=== PATIENT | female | born 1960 | race Caucasian/White ===

== ENCOUNTER 2018-08-25 23:37 | Observation (INO) ==
[2018-08-26 01:00] LABS: Basophils % 0.2 %; Eosinophils % 0.1 %; Hematocrit 44.4 % (35.3-44.9); Hemoglobin 14.7 g/dL (11.5-15.4); Immature Granulocytes % 0.5 % (0-4); Lymphocytes # 1.8 K/mcL (0.6-4.6); Lymphocytes % 13.8 %; Mean Corpuscular HGB Conc 33.1 g/dL (31.6-35.5); Mean Corpuscular Hemoglobin 29.6 pg (28.0-33.3); Mean Corpuscular Volume 89.5 fL (83.0-100.0); Mean Platelet Volume 10.6 fL (9.4-12.4); Monocytes # 0.4 K/mcL (0.0-1.3); Monocytes % 2.9 %; Neutrophils # 10.6 K/mcL (1.6-8.9); Platelet Count 279 K/mcL (140-400); Red Blood Count 4.96 M/mcL (3.82-4.97); Red Cell Distribution Width 13.2 % (11.5-14.5); Segmented Neutrophils % 82.5 %; White Blood Count 12.9 K/mcL (4.3-11.1)
[2018-08-26] MEDS ORDERED: Pantoprazole 40 MG VIAL IVP ONE (01:04)
[2018-08-26] MEDS ORDERED: *HR* FentaNYL (PF) 100 MCG/2 ML VIAL IVP ONE ×2 (01:04→02:23)
[2018-08-26] MEDS ORDERED: Ondansetron 4 MG/2 ML VIAL IVP ONE (01:04)
--- NOTE | 2018-08-26 01:09 | Emergency Department Note ---
Disposition Clinical Impression: Acute cholecystitis Disposition: Admitted As Inpatient Condition: Fair Time of Disposition: 02:37 General Adult HPI - General Chief complaint: ED Chest Pain Stated complaint: cp/abdominal/back Time Seen by Provider: 08/26/18 00:53 Source: patient, family Limitations: no limitations Nursing Notes Reviewed: Yes Vital Signs Reviewed: Yes - History of Present Illness HPI Narrative: 58 year old female with history of stomach ulcer presents with acute abdominal pain. Patient stated it was constant pain in upper abdomen and chest since 8:00 this evening. Associated with nausea and vomiting. Patient also reported diarrhea. History of hysterectomy. Onset (ago): hour(s) (5) Location: abdomen Pain Scale: 10 - Related Data Home Medications Medication Instructions Recorded Confirmed Metoprolol [Lopressor] 100 mg PO DAILY 08/26/18 08/26/18 Sertraline 08/26/18 Wellbutrin 08/26/18 08/26/18 amLODIPine [Norvasc] 5 mg PO DAILY 08/26/18 08/26/18 Allergies Allergy/AdvReac Type Severity Reaction Status Date / Time morphine Allergy Rash Verified 08/25/18 23:48 Constitutional: Denies: fever, chills Eyes: Denies: eye pain ENT ED: Denies: ear pain Cardiovascular: Reports: chest pain Respiratory: Denies: cough Gastrointestinal: Reports: abdominal pain, nausea, vomiting, diarrhea Genitourinary: Denies: urgency Musculoskeletal: Denies: back pain Integumentary: Denies: rash Neurological: Denies: headache Psychiatric: Denies: anxiety Endocrine: Denies: fatigue Hematological/Lymphatic: Denies: easy bleeding Allergic/Immunologic: Denies: facial swelling Past Medical History - Past Medical History Medical history: Reports: GERD, hypertension Surgical history: Reports: hysterectomy Psychiatric history: Reports: no psych history - Social History Smoking Status: Never smoker Smokeless Tobacco Status: No Alcohol use: Reports: occasionally Drug use: Reports: none Physical Exam - General Limitations: no limitations General appearance: alert, in no apparent distress - Head Head exam: atraumatic - Eye Eye exam: Present: normal appearance - ENT ENT exam: normal exam - Neck Neck exam: Present: normal inspection - Chest Chest inspection: Present: normal inspection - Respiratory Respiratory exam: Present: normal lung sounds bilaterally. Absent: respiratory distress, wheezes - Cardiovascular Cardiovascular exam: Present: regular rate - Abdominal Exam Abdominal exam: Present: soft, tenderness Abdominal tenderness: Present: RUQ, epigastrium - Extremities Exam Extremities exam: Present: normal inspection, full ROM. Absent: tenderness - Back Exam Back exam: Present: normal inspection, full ROM. Absent: tenderness - Neurological Exam Neurological exam: Present: alert, oriented X3 - Psychiatric Psychiatric exam: Present: normal affect - Skin Skin exam: Present: warm, intact Course Vital Signs Temperature 97.1 F L 08/25/18 23:48 Pulse Rate 88 08/25/18 23:48 Respiratory Rate 18 08/25/18 23:48 Blood Pressure 184/81 08/25/18 23:48 O2 Sat by Pulse Oximetry 100 08/25/18 23:48 Temperature 97.1 F L 08/25/18 23:48 Pulse Rate 46 08/26/18 02:00 Respiratory Rate 14 08/26/18 02:57 Blood Pressure 165/70 08/26/18 02:57 O2 Sat by Pulse Oximetry 100 08/25/18 23:48 Oxygen Delivery Oxygen Delivery Room Air Medical Decision Making - [facility] Narrative Medical decision making narrative: 58-year-old female with history of stomach ulcer presents with acute abdominal pain. Associate with nausea vomiting. Physical exam epigastric and right upper abdomen tender to palpation. Labs : white cell elevated, normal lipase, normal ALT AST, TB and DB. Abdomen CT possible acute cholecystitis. Spoke with general surgeon Dr. Collazo. He will admit patient to his service. Nothing by mouth. IV antibiotics started in ER. Dr. Renee has seen the patient and agrees the above plan. - Lab Data Lab results reviewed: Yes I reviewed the patient's lab results. Result diagrams: 08/26/18 00:44 08/26/18 00:44 Lab Results 08/26/18 08/26/18 Range/Units 00:44 00:44 WBC 12.9 H (4.3-11.1) K/mcL RBC 4.96 (3.82-4.97) M/mcL Hgb 14.7 (11.5-15.4) g/dL Hct 44.4 (35.3-44.9) % MCV 89.5 (83.0-100.0) fL MCH 29.6 (28.0-33.3) pg MCHC 33.1 (31.6-35.5) g/dL RDW 13.2 (11.5-14.5) % Plt Count 279 (140-400) K/mcL MPV 10.6 (9.4-12.4) fL Immature Gran % 0.5 (0-4) % Seg Neutrophils % 82.5 % Lymphocytes % 13.8 % Monocytes % 2.9 % Eosinophils % 0.1 % Basophils % 0.2 % Neutrophils # 10.6 H (1.6-8.9) K/mcL Lymphocytes # 1.8 (0.6-4.6) K/mcL Monocytes # 0.4 (0.0-1.3) K/mcL Eosinophils # 0.0 (0.0-0.6) K/mcL Basophils # 0.0 (0.0-0.2) K/mcL Sodium 137 (136-145) mEq/L Potassium 3.3 L (3.5-5.1) mEq/L Chloride 104 (98-107) mEq/L Carbon Dioxide 22 L (23-29) mEq/L BUN 15 (6-20) mg/dL Creatinine 0.82 (0.60-1.20) mg/dL Est GFR ( Amer) > 60 (> 60) Est GFR (Non-Af Amer) > 60 (> 60) BUN/Creatinine Ratio 18 (6-26) Glucose 163 H (70-105) mg/dL Calculated Osmolality 288 (280-300) Calcium 9.4 (8.6-10.3) mg/dL Total Bilirubin 0.4 (0.3-1.0) mg/dL Direct Bilirubin 0.1 (0.0-0.2) mg/dL Indirect Bilirubin 0.3 (0.0-1.2) mg/dL AST 24 (13-39) Units/L ALT 29 (7-52) Units/L Alkaline Phosphatase 113 H (34-104) Units/L Troponin I < 0.03 (< 0.04) ng/mL Serum Total Protein 7.2 (6.4-8.9) g/dL Albumin 4.5 (3.5-5.7) g/dL Globulin 2.7 (2.4-3.5) g/dL Albumin/Globulin Ratio 1.7 (1.1-2.2) Lipase 16 (11-82) Units/L - Radiology Data Radiology results reviewed: Yes I reviewed the patient's radiology results. TECHNIQUE: CT of the abdomen and pelvis was performed without the administration of intravenous contrast. Multiplanar reformatted images are provided for review. Dose modulation, iterative reconstruction, and/or weight based adjustment of the mA/kV was utilized to reduce the radiation dose to as low as reasonably achievable. COMPARISON: None. HISTORY: ORDERING SYSTEM PROVIDED HISTORY: upper abdominal pain FINDINGS: Lower Chest: Small areas of atelectasis at the lung bases. Heart is normal in size. No pericardial effusion. Organs: The gallbladder is mildly distended with diameter of 3.6 cm. Minimal inflammation of the pericholecystic fat. Findings are suspicious for possible acute cholecystitis. Consider HIDA scan. Mildly prominent lymph nodes in diane hepatis has short axis diameter of 7 mm, likely reactive. Liver, pancreas, spleen, bilateral adrenal glands are unremarkable. Bilateral kidneys and ureters are unremarkable. GI/Bowel: Stomach, small and large bowel loops are grossly unremarkable. The appendix is normal. Gastroesophageal reflux in distal esophagus. Pelvis: Urinary bladder is unremarkable. No lymphadenopathy. No soft tissue masses or abnormal fluid collections. Peritoneum/Retroperitoneum: No free intraperitoneal fluid or air. No abdominal aortic aneurysm. No retroperitoneal lymphadenopathy. Bones/Soft Tissues: No lytic or blastic lesions in all visualized osseous structures. CT/CT abd pelvis wo no iv no oral IMPRESSION: Mild distension of the gallbladder and minimal inflammation of the pericholecystic fat are suggestive of possible acute cholecystitis. Consider HIDA scan. Gastroesophageal reflux in the distal esophagus. D/ / Jackelyn Giles MD / Jackelyn Giles MD Interpreting Provider: Jackelyn Giles MD
[2018-08-26 01:15] LABS: BUN/Creatinine Ratio 18 (6-26); Blood Urea Nitrogen 15 mg/dL (6-20); Calcium 9.4 mg/dL (8.6-10.3); Carbon Dioxide 22 mEq/L (23-29); Chloride 104 mEq/L (98-107); Glucose 163 mg/dL (70-105); Lipase 16 Units/L (11-82); Osmolality,Calculated 288 (280-300); Potassium 3.3 mEq/L (3.5-5.1); Sodium 137 mEq/L (136-145); eGFR For African Americans > 60 (> 60); eGFR For Non-African Americans > 60 (> 60)
[2018-08-26 01:16] LABS: Troponin I < 0.03 ng/mL (< 0.04)
[2018-08-26 01:27] LABS: Alanine Aminotransferase 29 Units/L (7-52); Albumin 4.5 g/dL (3.5-5.7); Albumin/Globulin Ratio 1.7 (1.1-2.2); Alkaline Phosphatase 113 Units/L (34-104); Aspartate Amino Transferase 24 Units/L (13-39); Bilirubin,Direct 0.1 mg/dL (0.0-0.2); Bilirubin,Indirect 0.3 mg/dL (0.0-1.2); Bilirubin,Total 0.4 mg/dL (0.3-1.0); Total Protein 7.2 g/dL (6.4-8.9)
[2018-08-26 01:28] LABS: Globulin 2.7 g/dL (2.4-3.5)
[2018-08-26] MEDS ORDERED: MetroNIDAZOLE 500 MG/100 ML 500 MG/100 ML BAG IVPB ONE (02:24)
[2018-08-26] MEDS ORDERED: *HR* FentaNYL (PF) 100 MCG/2 ML VIAL IVP PRN (02:35)
[2018-08-26] MEDS ORDERED: Ondansetron 4 MG/2 ML VIAL IVP PRN ×2 (02:37→06:03)
--- NOTE | 2018-08-26 02:57 | Emergency Department Note ---
Disposition Clinical Impression: Acute cholecystitis Disposition: Admitted As Inpatient Condition: Fair Time of Disposition: 03:02 General Adult HPI - General Chief complaint: ED Chest Pain Stated complaint: cp/abdominal/back Time Seen by Provider: 08/26/18 00:53 Source: patient, family Limitations: no limitations Nursing Notes Reviewed: Yes Vital Signs Reviewed: Yes - History of Present Illness Location: abdomen Pain Scale: 10 - Related Data Home Medications Medication Instructions Recorded Confirmed Metoprolol [Lopressor] 100 mg PO DAILY 08/26/18 08/26/18 Sertraline 08/26/18 Wellbutrin 08/26/18 08/26/18 amLODIPine [Norvasc] 5 mg PO DAILY 08/26/18 08/26/18 Allergies Allergy/AdvReac Type Severity Reaction Status Date / Time morphine Allergy Rash Verified 08/25/18 23:48 Constitutional: Denies: fever, chills Eyes: Denies: eye pain ENT ED: Denies: ear pain Cardiovascular: Reports: chest pain Respiratory: Denies: cough Gastrointestinal: Reports: abdominal pain, nausea, vomiting, diarrhea Genitourinary: Denies: urgency Musculoskeletal: Denies: back pain Integumentary: Denies: rash Neurological: Denies: headache Psychiatric: Denies: anxiety Endocrine: Denies: fatigue Hematological/Lymphatic: Denies: easy bleeding Allergic/Immunologic: Denies: facial swelling Past Medical History - Past Medical History Medical history: Reports: GERD, hypertension Surgical history: Reports: hysterectomy Psychiatric history: Reports: no psych history - Social History Smoking Status: Never smoker Smokeless Tobacco Status: No Alcohol use: Reports: occasionally Drug use: Reports: none Physical Exam - General Limitations: no limitations General appearance: alert, in no apparent distress Course Vital Signs Temperature 97.1 F L 08/25/18 23:48 Pulse Rate 88 08/25/18 23:48 Respiratory Rate 18 08/25/18 23:48 Blood Pressure 184/81 08/25/18 23:48 O2 Sat by Pulse Oximetry 100 08/25/18 23:48 Temperature 97.1 F L 08/25/18 23:48 Pulse Rate 46 08/26/18 02:00 Respiratory Rate 15 08/26/18 02:00 Blood Pressure 176/64 08/26/18 02:00 O2 Sat by Pulse Oximetry 100 08/25/18 23:48 Oxygen Delivery Oxygen Delivery Room Air Medical Decision Making - Medical Records Medical records reviewed: Yes I reviewed the patient's medical records. - Lab Data Lab results reviewed: Yes I reviewed the patient's lab results. Result diagrams: 08/26/18 00:44 08/26/18 00:44 Lab Results 08/26/18 08/26/18 Range/Units 00:44 00:44 WBC 12.9 H (4.3-11.1) K/mcL RBC 4.96 (3.82-4.97) M/mcL Hgb 14.7 (11.5-15.4) g/dL Hct 44.4 (35.3-44.9) % MCV 89.5 (83.0-100.0) fL MCH 29.6 (28.0-33.3) pg MCHC 33.1 (31.6-35.5) g/dL RDW 13.2 (11.5-14.5) % Plt Count 279 (140-400) K/mcL MPV 10.6 (9.4-12.4) fL Immature Gran % 0.5 (0-4) % Seg Neutrophils % 82.5 % Lymphocytes % 13.8 % Monocytes % 2.9 % Eosinophils % 0.1 % Basophils % 0.2 % Neutrophils # 10.6 H (1.6-8.9) K/mcL Lymphocytes # 1.8 (0.6-4.6) K/mcL Monocytes # 0.4 (0.0-1.3) K/mcL Eosinophils # 0.0 (0.0-0.6) K/mcL Basophils # 0.0 (0.0-0.2) K/mcL Sodium 137 (136-145) mEq/L Potassium 3.3 L (3.5-5.1) mEq/L Chloride 104 (98-107) mEq/L Carbon Dioxide 22 L (23-29) mEq/L BUN 15 (6-20) mg/dL Creatinine 0.82 (0.60-1.20) mg/dL Est GFR ( Amer) > 60 (> 60) Est GFR (Non-Af Amer) > 60 (> 60) BUN/Creatinine Ratio 18 (6-26) Glucose 163 H (70-105) mg/dL Calculated Osmolality 288 (280-300) Calcium 9.4 (8.6-10.3) mg/dL Total Bilirubin 0.4 (0.3-1.0) mg/dL Direct Bilirubin 0.1 (0.0-0.2) mg/dL Indirect Bilirubin 0.3 (0.0-1.2) mg/dL AST 24 (13-39) Units/L ALT 29 (7-52) Units/L Alkaline Phosphatase 113 H (34-104) Units/L Troponin I < 0.03 (< 0.04) ng/mL Serum Total Protein 7.2 (6.4-8.9) g/dL Albumin 4.5 (3.5-5.7) g/dL Globulin 2.7 (2.4-3.5) g/dL Albumin/Globulin Ratio 1.7 (1.1-2.2) Lipase 16 (11-82) Units/L - Radiology Data Radiology results reviewed: Yes I reviewed the patient's radiology results. Abdomen/Pelvis CT 08/26/18 01:03 IMPRESSION: Mild distension of the gallbladder and minimal inflammation of the pericholecystic fat are suggestive of possible acute cholecystitis. Consider HIDA scan. Gastroesophageal reflux in the distal esophagus. D/ / Jackelyn Giles MD / Jackelyn Giles MD Interpreting Provider: Jackelyn Giles MD Chest X-Ray 08/26/18 23:50 IMPRESSION: No acute findings in the chest. D/ / Jackelyn Giles MD / Jackelyn Giles MD Interpreting Provider: Jackelyn Giles MD Critical Care Time Critical Care Time: No Total Critical Care Time: 20 Attestation Statement - Attestation Attestation: I, Nain Renee MD, personally evaluated this patient and discussed their management with the midlevel provicer, PAC/VENIPUNCTURIST. I reviewed the midlevel provider's note and agree with the documented findings, medical decision making, and plan of care. 58 year old female presents to the emergency probably to complain of severe epigastric and right upper quadrant abdominal pain which started about 8 PM this evening. Pain associated with nausea and vomiting. Patient has had mild discomfort in this area intermittently for the past 2 months but not as severe as this episode tonight. The pain radiates up into the chest. No fever. No melena, hematemesis, or hematochezia. On examination patient is a well-developed well-nourished female in no acute distress but does appear to be in moderate discomfort. She is alert and oriented 3. There is no cyanosis. She is pale and mildly clammy. Chest is nontender to palpation. Breath sounds are clear and equal bilaterally. Heart regular rate and rhythm. Abdomen is soft with decreased bowel sounds. Moderate midepigastric and right upper quadrant tenderness on direct palpation. Labs reviewed. Mild leukocytosis. CT the abdomen and pelvis obtained and co ncerning for acute cholecystitis. EKG shows a normal sinus rhythm with ventricular rate of 62. No significant ST segment elevation or depression. No arrhythmia or ectopy. Normal EKG. The surgeon carbon brusher assembler, Dr. Collazo, was consulted and accepted admission of the patient to the surgical service.
[2018-08-26] MEDS: 0.9 % Sodium Chloride 1,000 ML IVC SCH ×2 (03:48→13:02)
[2018-08-26] MEDS ORDERED: Naloxone 0.4 MG/ML INJ IVP PRN (04:05)
[2018-08-26] MEDS ORDERED: traMADol 50 MG TABLET PO PRN (04:05)
[2018-08-26] MEDS ORDERED: *HR* HYDROcodone/Acet 5/325 mg TABLET PO PRN (04:05)
[2018-08-26] MEDS: Piperacillin/Tazobactam 3.375 GM in 0.9 % Sodium Chloride Mini Bag 100 ML IVPB SCH ×3 (04:45→20:43)
[2018-08-26] MEDS ORDERED: *HR* Promethazine 25 MG/ML VIAL IVP PRN (06:05)
[2018-08-26] MEDS: *HR* Enoxaparin 40 MG/0.4 ML SYRINGE SQ SCH (06:33)
[2018-08-26] MEDS ORDERED: Piperacillin/Tazobactam 3.375 GM in 0.9 % Sodium Chloride Mini Bag 100 ML IVPB SCH (08:00)
--- NOTE | 2018-08-26 12:27 | AcuteCare Surgery Consult Note ---
Date of Encounter: 08/26/18 Time of Encounter: 12:21 Assessment and Plan (1) Acute cholecystitis Current Visit: Yes Status: Acute 58F with acute cholecystitis; suspect that she has been having episodes for ~ 6 months; suspect there would be lots of inflammation NPO except ice chips, strict NPO at midnight IVF IVF abx x 24hrs - to allow control of inflammation and to allow it to subside some before going into surgery OR on 08/27 pain control all discussed with patient who was in agreement History of Present Illness Consult date: 08/26/18 Reason for consult: abdominal pain (small bowel obstruction) History of present illness: 58F PMH significant for what sounds like PUD who presents with worsening abdominal pain. The pain started about six months, which she attributed to her ulcers, localized to the epigastric region with radiation to her back. The pain is associated with nausea, rated a 10/10, with no identifiable alleviating factors. A CT scan was obtained which demonstrated a distended gallbladder and concerning for acute inflammation; Past Med Surg Social Fam HX - Past Medical History Medical history: GERD, hypertension Additional medical history: Dysthymic Disorder, stomach ulcer Psychiatric history: no psych history - Past Surgical History Surgical History: hysterectomy Additional surgical history: Left Breast Lumps Removed, Tonsillectomy - Social History Smoking Status: Never smoker Smokeless Tobacco Status: No Alcohol use: occasionally Drug use: none - Additional Family History Additional family history: non contributory Medications and Allergies Metoprolol [Lopressor] 100 mg PO DAILY 08/26/18 [History] Sertraline 08/26/18 [History] Wellbutrin 08/26/18 [History] amLODIPine [Norvasc] 5 mg PO DAILY 08/26/18 [History] 3 Allergy/AdvReac Type Severity Reaction Status Date / Time morphine Allergy Rash Verified 08/25/18 23:48 Review of Systems All systems PM: 12 point ROS negative besides HPI findings General Surgery Exam Initial Vital Signs Temp Pulse Resp BP Pulse Ox 97.1 F L 88 18 184/81 100 08/25/18 23:48 08/25/18 23:48 08/25/18 23:48 08/25/18 23:48 08/25/18 23:48 - General physical appearance no distress - Eyes normal ocular movement - ENT normocephalic - Respiratory normal expansion, normal respiratory effort - Cardiovascular Cardiovascular exam: Present: RRR - Abdomen Abdomen general surgery: Present: soft, tender Abdominal Tenderness: Present: RUQ ((+)larsen's sign) - Integumentary Integumentary general surgery: Present: warm and dry - Neurologic Present: CN 2-12 grossly intact - Musculoskeletal Present: normal posture - Psychiatric Psychiatric general surgery: Present: A&Ox3 Exam Initial Vital Signs Temp Pulse Resp BP Pulse Ox 97.1 F L 88 18 184/81 100 08/25/18 23:48 08/25/18 23:48 08/25/18 23:48 08/25/18 23:48 08/25/18 23:48 Results - Labs 08/26/18 00:44 08/26/18 00:44 Abnormal lab results WBC 12.9 K/mcL (4.3-11.1) H 08/26/18 00:44 Neutrophils # 10.6 K/mcL (1.6-8.9) H 08/26/18 00:44 Potassium 3.3 mEq/L (3.5-5.1) L 08/26/18 00:44 Carbon Dioxide 22 mEq/L (23-29) L 08/26/18 00:44 Glucose 163 mg/dL (70-105) H 08/26/18 00:44 POC Glucose 160 mg/dL (70-99) H 08/26/18 06:23 Alkaline Phosphatase 113 Units/L (34-104) H 08/26/18 00:44 Diabetes panel 08/26/18 Range/Units 00:44 Sodium 137 (136-145) mEq/L Potassium 3.3 L (3.5-5.1) mEq/L Chloride 104 (98-107) mEq/L Carbon Dioxide 22 L (23-29) mEq/L BUN 15 (6-20) mg/dL Creatinine 0.82 (0.60-1.20) mg/dL Glucose 163 H (70-105) mg/dL Calcium 9.4 (8.6-10.3) mg/dL AST 24 (13-39) Units/L ALT 29 (7-52) Units/L Alkaline Phosphatase 113 H (34-104) Units/L Albumin 4.5 (3.5-5.7) g/dL Calcium panel 08/26/18 Range/Units 00:44 Calcium 9.4 (8.6-10.3) mg/dL Albumin 4.5 (3.5-5.7) g/dL Pituitary panel 08/26/18 Range/Units 00:44 Sodium 137 (136-145) mEq/L Potassium 3.3 L (3.5-5.1) mEq/L Chloride 104 (98-107) mEq/L Carbon Dioxide 22 L (23-29) mEq/L BUN 15 (6-20) mg/dL Creatinine 0.82 (0.60-1.20) mg/dL Glucose 163 H (70-105) mg/dL Calcium 9.4 (8.6-10.3) mg/dL Adrenal panel 08/26/18 Range/Units 00:44 Sodium 137 (136-145) mEq/L Potassium 3.3 L (3.5-5.1) mEq/L Chloride 104 (98-107) mEq/L Carbon Dioxide 22 L (23-29) mEq/L BUN 15 (6-20) mg/dL Creatinine 0.82 (0.60-1.20) mg/dL Glucose 163 H (70-105) mg/dL Calcium 9.4 (8.6-10.3) mg/dL Total Bilirubin 0.4 (0.3-1.0) mg/dL AST 24 (13-39) Units/L ALT 29 (7-52) Units/L Alkaline Phosphatase 113 H (34-104) Units/L Albumin 4.5 (3.5-5.7) g/dL All other labs normal. - Imaging CT scan - abdomen: report reviewed, image reviewed CT scan - pelvis: report reviewed Consult Discharge Plan - Plan Referrals: Ruma Shultz, NEETA [Primary Care Provider] -
[2018-08-27] MEDS: 0.9 % Sodium Chloride 1,000 ML IVC SCH ×2 (02:00→08:46)
[2018-08-27] MEDS: Piperacillin/Tazobactam 3.375 GM in 0.9 % Sodium Chloride Mini Bag 100 ML IVPB SCH ×2 (03:51→11:46)
[2018-08-27] MEDS: *HR* Enoxaparin 40 MG/0.4 ML SYRINGE SQ SCH (04:55)
--- NOTE | 2018-08-27 08:17 | AcuteCareSurgery Progress Note ---
Date of Encounter: 08/27/18 Time of Encounter: 07:00 - Assessment and Plan (1) Acute cholecystitis Current Visit: Yes Status: Acute Pt diagnosis of acute cholecystitis is discussed. Laparoscopic Cholecystectomy is recommended. Procedure for the surgery, risks and benefits are discussed in detail. Possible known complications for Laparoscopic Cholecystectomy are bleeding, infection, bile duct injury, bile leak, small intestine or stomach in jury, stroke, DVT/PE, [place] or . Pt understands these risks, which in this case are . Pt wishes to proceed with surgery as soon as possible. Informed consent is obtained. Pt condition is stable. Surgery is scheduled. Pt to get Metoprolol has prescribed at home pre-op. (2) HTN (hypertension) Current Visit: Yes Status: Acute Continue home meds perioperatively. BP stable. Qualifiers: Hypertension type: essential hypertension Qualified Code(s): I10 - Essential (primary) hypertension Subjective Patient reports: no new complaints, feels better, still having pain, pain is less, flatus, afebrile Narrative: NPO Objective Vital Signs - Last 8 Hours Temp Pulse Resp BP Pulse Ox 08/27/18 07:06 98.7 F 61 16 146/84 94 08/27/18 05:22 98.1 F 61 15 143/83 91 08/27/18 00:19 98.1 F 66 15 135/80 91 Intake and Output 08/26/18 08/27/18 08/27/18 23:59 07:59 15:59 Intake Total 100 / 300 1100 / 1100 Balance 100 / 250 1100 / 1100 Intake: IV Fluids 100 / 300 1100 / 1100 0.9 % Sodium Chloride 1,000 ML 1000 / 1000 @ 100 mls/hr IVC .Q10H JULIANNA Rx#: [id number] Zosyn 3.375 GM In 0.9 % Sodium 100 / 200 100 / 100 Chloride (Mini-Bag +) 100 ML @ 25 mls/hr IVPB Q8H JULIANNA Rx#: [id number] Oral 0 / 0 Other: # Voids 2 1 Blood Glucose* 132 132 - General physical appearance well developed, well nourished, no distress - Eyes PERRL, normal ocular movement - ENT normal mucosa, no congestion - Neck Neck exam: trachea midline, no venous distension - Respiratory normal respiratory effort, clear to auscultation - Cardiovascular Cardiovascular exam: Present: RRR. Absent: JVD - Abdomen Abdomen: Present: bowel sounds present, soft, tender Abdominal Tenderness: RUQ - Neurologic CN 2-12 grossly intact, normal coordination, normal sensation - Musculoskeletal normal posture - Psychiatric oriented to time, oriented to person, oriented to place - Labs 08/26/18 00:44 08/26/18 00:44 Consult Discharge Plan - Plan Referrals: Ruma Shultz, NEETA [Primary Care Provider] -
[2018-08-27 09:28] LABS: Basophils % 0.3 %; Eosinophils % 0.1 %; Hematocrit 45.6 % (35.3-44.9); Hemoglobin 14.7 g/dL (11.5-15.4); Immature Granulocytes % 0.6 % (0-4); Lymphocytes # 1.6 K/mcL (0.6-4.6); Lymphocytes % 13.4 %; Mean Corpuscular HGB Conc 32.2 g/dL (31.6-35.5); Mean Corpuscular Hemoglobin 29.5 pg (28.0-33.3); Mean Corpuscular Volume 91.4 fL (83.0-100.0); Mean Platelet Volume 10.7 fL (9.4-12.4); Monocytes # 1.1 K/mcL (0.0-1.3); Monocytes % 9.5 %; Neutrophils # 9.1 K/mcL (1.6-8.9); Platelet Count 152 K/mcL (140-400); Red Blood Count 4.99 M/mcL (3.82-4.97); Red Cell Distribution Width 13.5 % (11.5-14.5); Segmented Neutrophils % 76.1 %; White Blood Count 11.9 K/mcL (4.3-11.1)
[2018-08-27 09:49] LABS: Alanine Aminotransferase 51 Units/L (7-52); Albumin 3.9 g/dL (3.5-5.7); Albumin/Globulin Ratio 1.5 (1.1-2.2); Alkaline Phosphatase 90 Units/L (34-104); Aspartate Amino Transferase 41 Units/L (13-39); BUN/Creatinine Ratio 13 (6-26); Bilirubin,Total 0.8 mg/dL (0.3-1.0); Blood Urea Nitrogen 11 mg/dL (6-20); Calcium 8.7 mg/dL (8.6-10.3); Carbon Dioxide 24 mEq/L (23-29); Globulin 2.6 g/dL (2.4-3.5); Glucose 132 mg/dL (70-105); Total Protein 6.5 g/dL (6.4-8.9); eGFR For African Americans > 60 (> 60); eGFR For Non-African Americans > 60 (> 60)
[2018-08-27 10:01] LABS: Chloride 108 mEq/L (98-107); Osmolality,Calculated 291 (280-300); Potassium 3.3 mEq/L (3.5-5.1); Sodium 140 mEq/L (136-145)
[2018-08-27] MEDS ORDERED: Ondansetron 4 MG/2 ML VIAL ONE (13:32)
[2018-08-27] MEDS ORDERED: Lidocaine -MPF 2% 2 ML VIAL ONE (13:32)
[2018-08-27] MEDS ORDERED: Lidocaine -MPF 4% 5 ML AMPUL ONE (13:32)
[2018-08-27] MEDS ORDERED: *HR* Rocuronium Bromide 50 MG/5 ML VIAL ONE (13:32)
[2018-08-27] MEDS ORDERED: *HR* FentaNYL (PF) 100 MCG/2 ML VIAL ONE (13:32)
[2018-08-27] MEDS ORDERED: Dexamethasone 4 MG/ML VIAL ONE (13:32)
[2018-08-27] MEDS ORDERED: *HR* Midazolam HCl 2 MG/2 ML VIAL ONE (13:33)
[2018-08-27] MEDS ORDERED: *HR* Propofol 200 MG/20 ML VIAL IVP ONE (13:33)
--- NOTE | 2018-08-27 13:46 | Anesthesia Evaluation PreOp ---
Date of Encounter: 08/27/18 Time of Encounter: 13:44 - Past History Planned Operation: Lap. Aylin. Cardiac History: HTN Pulmonary History: Denies Any Significant HX AGRONOMY LOCATION MANAGER History: Denies Any Significant HX Other Medical History: Denies Any Significant HX Anesthesia History: No Prior Anesthetic Complications, Past Anesthesia (EGD) : No Alcohol Use: occasionally Drug use: none Medications and Allergies amLODIPine [Norvasc] 5 mg PO DAILY 08/26/18 [History] BuPROPion XL (24 HR) [Wellbutrin Xl] 150 mg PO DAILY 08/27/18 [History] Docusate Sodium [Colace] 100 mg PO BID PRN #30 capsule 08/27/18 [Rx] Ibuprofen 800 mg PO Q8H PRN #30 tablet 08/27/18 [Rx] Metoprolol Tartrate 25 mg PO BID 08/27/18 [History] Ondansetron ODT [Zofran ODT] 4 mg SL Q4HR PRN #15 tab.rapdis 08/27/18 [Rx] OxyCODONE/APAP 5/325 [Percocet 5/325 MG] 1 each PO Q6HR PRN 7 Days #28 tablet 08/27/18 [Rx] Polyethylene Glycol 3350 [MiraLAX Powder Bulk 17.9 Oz] 1 scoop PO DAILY 30 Days #510 gm 08/27/18 [Rx] Sertraline [Zoloft] 100 mg PO DAILY 08/27/18 [History] Allergy/AdvReac Type Severity Reaction Status Date / Time morphine Allergy Rash Verified 08/25/18 23:48 - Meds/Allergy Pre-op Review Medications Reviewed: Yes Allergies Reviewed: Yes Beta Blockers on Current Med List: Yes If Beta Blockers taken, Date/Time (Last Dose taken): 08/27/18 08:19 Anesthesia Results - Labs 08/27/18 09:06 08/27/18 09:06 Anesthesia Exam Vital Signs/O2 Sat, Most Current Temp Pulse Resp BP Pulse Ox 98.7 F 68 16 127/83 91 08/27/18 11:17 08/27/18 11:17 08/27/18 11:17 08/27/18 11:17 08/27/18 11:17 - HEENT Pupil (Motor): Pupils equal, EOMI Mallampati: II Teeth: Normal, Prosthesis (Perm. [place]) Oral Opening: Greater than 3 - AGRONOMY LOCATION MANAGER LOC: Oriented AGRONOMY LOCATION MANAGER Motor: Normal RUE, Normal LUE, Normal RLE, Normal LLE, Normal Face AGRONOMY LOCATION MANAGER Sensory: Normal: RUE, LUE, RLE, LLE, Face - Cardiac Rhythm: Regular Murmur: None - Pulmonary Breath Sounds: bilateral Clear Respiratory Effort: Symmetrical Anesthesia Assess/Plan ASA Score: 2 Level of consciousness: Cooperative Anesthetic Plan: General Autologous Blood: Yes Monitoring Plan: Standard Monitors Recovery Plan: PACU
[2018-08-27] MEDS ORDERED: *HR* OxyCODONE Immed Rel 5 MG TABLET PO PRN (13:52)
[2018-08-27] MEDS ORDERED: *HR* HYDROmorphone (PF) 1 MG/ML SYRINGE IVP PRN (13:52)
[2018-08-27] MEDS ORDERED: Ondansetron 4 MG/2 ML VIAL IVP ONE ×2 (13:52→16:40)
[2018-08-27] MEDS ORDERED: *HR* Labetalol 20 MG/4 ML SYRINGE IVP PRN (13:52)
[2018-08-27] MEDS ORDERED: *HR* PHENYLEPHRINE 1,000 MCG/10 ML SYRINGE IVP ONE (14:27)
[2018-08-27] MEDS ORDERED: Acetaminophen IV 1,000 MG/100 ML INFUS..BTL ONE (15:08)
[2018-08-27] MEDS ORDERED: Neostigmine Methylsulfate 3 MG/3 ML SYRINGE ONE (15:36)
[2018-08-27] MEDS ORDERED: Piperacillin/Tazobactam 3.375 GM in 0.9 % Sodium Chloride Mini Bag 100 ML IVPB SCH (16:00)
[2018-08-27] MEDS ORDERED: Ringers Solution, Lactated 1,000 ML ONE (16:06)
[2018-08-27] MEDS: *HR* Promethazine 25 MG/ML VIAL IVP PRN ×2 (16:07→16:22)
--- NOTE | 2018-08-27 16:23 | Operative Note ---
Date of procedure: 08/27/18 Pre-op diagnosis: Acute cholecystitis Post-op diagnosis: same (With cholelithiasis) Procedure: Laparoscopic cholecystectomy Complications: None Anesthesia: GETA Surgeon: Ike Joseph Was there an recreation assistant present: No Estimated blood loss (cc): 75 Specimen: Gallbladder Condition: stable Disposition: PACU Procedure in Detail: This 58 year-old female was taken to the operating room and placed in the supine position. The anterior abdominal wall is prepped and draped in the usual sterile fashion. A 1-2 cm curvilinear incision is made in the infraumbilical area and subcutaneous tissue was dissected down to anterior rectus fascia. Fascia is grasped with a Tani clamp, stay sutures were placed in the fascia is divided. Posterior rectus fascia and peritoneum were elevated and divided in the same manner. A Mariana port is inserted. Under direct visualization after the injection of 0.5% Marcaine the x3 5 mm ports are inserted in the right subcostal space under direct visualization. Exploration of the intraabdominal cavity reveals an abnormal gallbladder. The patient is placed in reverse Trendelenburg position and rotated to the left. The gallbladder is grasped and retracted in cephalad direction. It is also grasped and retracted in the lateral direction. The cystic duct was carefully identified circumferentially dissected doubly clipped and divided between clips. The cystic duct tissue was very friable.. The cystic artery is carefully identified and circumferentially dissected and divided between clips. The gallbladder is dissected off the liver bed using electrocautery. Hemostasis was perfected using electrocautery. The gallbladder is removed from the intra-abdominal cavity using an Endo Catch bag. Copious irrigation is carried out in the intra-abdominal cavity, Leonard's pouch and the gallbladder fossa. A 10 flat ALCON drain is placed and sewn to the anterior abdominal wall using 3-0 nylon sutures. The pneumoperitoneum was allowed to escape under direct visualization. The ports were removed also under direct visualization. The fascia at the infraumbilical incision is closed using 0 Vicryl sutures. All skin incisions are closed using 4-0 Monocryl subcuticular stitches. Steri-Strips are placed. Sterile dressing is placed. Patient tolerated procedure well was taken to the PACU in good condition.
--- NOTE | 2018-08-27 16:59 | Anesthesia Evaluation Post Op ---
Date of Encounter: 08/27/18 Time of Encounter: 16:58 - Vital Signs Vital Signs: Vital Signs/O2 Sat, Most Current Temp Pulse Resp BP Pulse Ox 98.4 F 57 18 161/75 95 08/27/18 16:26 08/27/18 16:46 08/27/18 16:46 08/27/18 16:46 08/27/18 16:46 - Lungs Lungs: Clear Ascult./Percussion - Airway Airway: Non-obstructed - Cardiovascular Regular Rate - Mental Status Mental Status: Asleep with brisk response to light stimulation - Nausea Vomiting Nausea Vomiting: Responds to treatment with IV Meds - Hydration Hydration: Ice chips, Has not voided - Discharge PostOp Status: Transfer Patient to floor
[2018-08-27] MEDS ORDERED: Ondansetron 4 MG/2 ML VIAL IVP PRN (17:32)
[2018-08-27] MEDS ORDERED: *HR* HYDROcodone/Acet 5/325 mg TABLET PO PRN (17:32)
[2018-08-27] MEDS ORDERED: Naloxone 0.4 MG/ML INJ IVP PRN (17:32)
[2018-08-28] MEDS: Piperacillin/Tazobactam 3.375 GM in 0.9 % Sodium Chloride Mini Bag 100 ML IVPB SCH ×2 (00:45→08:42)
[2018-08-28] MEDS ORDERED: *HR* Enoxaparin 40 MG/0.4 ML SYRINGE SQ SCH (06:00)
[2018-08-28 08:03] LABS: Basophils % 0.1 %; Hematocrit 42.3 % (35.3-44.9); Hemoglobin 13.9 g/dL (11.5-15.4); Immature Granulocytes % 0.7 % (0-4); Lymphocytes # 2.6 K/mcL (0.6-4.6); Lymphocytes % 17.2 %; Mean Corpuscular HGB Conc 32.9 g/dL (31.6-35.5); Mean Corpuscular Hemoglobin 29.6 pg (28.0-33.3); Mean Corpuscular Volume 90.2 fL (83.0-100.0); Mean Platelet Volume 10.8 fL (9.4-12.4); Monocytes # 1.2 K/mcL (0.0-1.3); Monocytes % 7.8 %; Neutrophils # 11.3 K/mcL (1.6-8.9); Platelet Count 186 K/mcL (140-400); Red Blood Count 4.69 M/mcL (3.82-4.97); Red Cell Distribution Width 13.4 % (11.5-14.5); Segmented Neutrophils % 74.2 %; White Blood Count 15.2 K/mcL (4.3-11.1)
--- NOTE | 2018-08-28 08:17 | Discharge Summary ---
Orders not resulted at time of discharge: Pending orders 08/25/18 23:50 ECG 12 lead ECG [ECG] Stat 08/27/18 14:38 Surgical Pathology [PTH] Routine 08/28/18 07:47 BMP [Basic Metabolic Panel] Stat Date of Encounter: 08/28/18 Time of Encounter: 08:15 - Discharge Diagnosis (1) Acute cholecystitis Priority: Primary Status: Resolved (2) HTN (hypertension) Priority: Secondary Status: Chronic Qualifiers: Hypertension type: essential hypertension Qualified Code(s): I10 - Essential (primary) hypertension General Surgery Exam Initial Vital Signs Temp Pulse Resp BP Pulse Ox 97.1 F L 88 18 184/81 100 08/25/18 23:48 08/25/18 23:48 08/25/18 23:48 08/25/18 23:48 08/25/18 23:48 - General physical appearance well nourished, no distress - Neck trachea midline - Respiratory normal expansion, normal respiratory effort - Cardiovascular Cardiovascular exam: Present: RRR - Abdomen Abdomen general surgery: Present: bowel sounds present, soft, tender (expected postoperative) - Incision Incision: Present: clean and dry, intact - Integumentary Integumentary general surgery: Present: warm and dry - Neurologic Present: normal sensation - Musculoskeletal Present: normal gait, normal posture - Psychiatric Psychiatric general surgery: Present: appropriate, oriented to person, oriented to place, oriented to time, speech is normal, memory intact - Hospital Course Hospital course: Ms. Lake is a 58 year old female who presented on 08/26/2018 with acute cholecystitis. She was suspected to have significant inflammation was therefore kept on IV fluids and antibiotics for 24 hours. She was taken to the operating room on 08/27/2018 where she underwent a laparoscopic cholecystectomy with notable friable cystic duct tissue. A ALCON drain was left in overnight to observe for any potential bile leak. This was unremarkable and removed prior to discharge. She is ambulating avoiding without difficulty, tolerating a diet without nausea or vomiting, vital signs are stable and she is afebrile. We will begin discharge planning to home with a follow-up in the office in approximately 2 weeks. - Time Spent with Patient Total time spent providing and/or coordinating discharge services: - Discharge Medications Prescriptions: New Docusate Sodium [Colace] 100 mg PO BID PRN #30 capsule PRN Reason: Contstipation Ibuprofen 800 mg PO Q8H PRN #30 tablet PRN Reason: Postsurgical pain Polyethylene Glycol 3350 [MiraLAX Powder Bulk 17.9 Oz] 1 scoop PO DAILY 30 Days #510 gm OxyCODONE/APAP 5/325 [Percocet 5/325 MG] 1 each PO Q6HR PRN 7 Days #28 tablet PRN Reason: Pain Ondansetron ODT [Zofran ODT] 4 mg SL Q4HR PRN #15 tab.rapdis PRN Reason: Postsurgical nausea Continued amLODIPine [Norvasc] 5 mg PO DAILY BuPROPion XL (24 HR) [Wellbutrin Xl] 150 mg PO DAILY Sertraline [Zoloft] 100 mg PO DAILY Metoprolol Tartrate 25 mg PO BID Home Medications: amLODIPine [Norvasc] 5 mg PO DAILY 08/26/18 [History] BuPROPion XL (24 HR) [Wellbutrin Xl] 150 mg PO DAILY 08/27/18 [History] Docusate Sodium [Colace] 100 mg PO BID PRN #30 capsule 08/27/18 [Rx] Ibuprofen 800 mg PO Q8H PRN #30 tablet 08/27/18 [Rx] Metoprolol Tartrate 25 mg PO BID 08/27/18 [History] Ondansetron ODT [Zofran ODT] 4 mg SL Q4HR PRN #15 tab.rapdis 08/27/18 [Rx] OxyCODONE/APAP 5/325 [Percocet 5/325 MG] 1 each PO Q6HR PRN 7 Days #28 tablet 08/27/18 [Rx] Polyethylene Glycol 3350 [MiraLAX Powder Bulk 17.9 Oz] 1 scoop PO DAILY 30 Days #510 gm 08/27/18 [Rx] Sertraline [Zoloft] 100 mg PO DAILY 08/27/18 [History] Allergies/Adverse Reactions: Allergy/AdvReac Type Severity Reaction Status Date / Time morphine Allergy Rash Verified 08/25/18 23:48 Date of admission: 08/26/18 02:51 Primary care physician: Ruma Shultz CNP Discharging clinician: Yaya Gabriel) Anticipated date of discharge: 08/28/18 Labs on day of discharge: Labs from last 24 hours 08/28/18 08/27/18 08/27/18 07:47 09:06 09:06 WBC 15.2 H 11.9 H RBC 4.69 4.99 H Hgb 13.9 14.7 Hct 42.3 45.6 H MCV 90.2 91.4 MCH 29.6 29.5 MCHC 32.9 32.2 RDW 13.4 13.5 Plt Count 186 152 MPV 10.8 10.7 Immature Gran % 0.7 0.6 Seg Neutrophils % 74.2 76.1 Lymphocytes % 17.2 13.4 Monocytes % 7.8 9.5 Eosinophils % 0.0 0.1 Basophils % 0.1 0.3 Neutrophils # 11.3 H 9.1 H Lymphocytes # 2.6 1.6 Monocytes # 1.2 1.1 Eosinophils # 0.0 0.0 Basophils # 0.0 0.0 Sodium 140 Potassium 3.3 L Chloride 108 H Carbon Dioxide 24 BUN 11 Creatinine 0.85 Est GFR ( Amer) > 60 Est GFR (Non-Af Amer) > 60 BUN/Creatinine Ratio 13 Glucose 132 H Calculated Osmolality 291 Calcium 8.7 Total Bilirubin 0.8 AST 41 H ALT 51 Alkaline Phosphatase 90 Serum Total Protein 6.5 Albumin 3.9 Globulin 2.6 Albumin/Globulin Ratio 1.5 - Impressions ITS Impressions Abdomen/Pelvis CT 08/26/18 01:03 IMPRESSION: Mild distension of the gallbladder and minimal inflammation of the pericholecystic fat are suggestive of possible acute cholecystitis. Consider HIDA scan. Gastroesophageal reflux in the distal esophagus. D/ / Jackelyn Giles MD / Jackelyn Giles MD Interpreting Provider: Jackelyn Giles MD Chest X-Ray 08/26/18 23:50 IMPRESSION: No acute findings in the chest. D/ / Jackelyn Giles MD / Jackelyn Giles MD Interpreting Provider: Jackelyn Giles MD - Patient Status Disposition: Home, Self-Care Condition: Fair Functional capacity at discharge: independent ambulation Overall status at discharge: patient is progressing back to baseline - Discharge Instructions Instructions: Laparoscopic Cholecystectomy (DC) Follow Up With: Ruma Shultz CNP [Primary Care Provider] - Jennifer Gabriel CNP [Advanced Practice Nurse] - 09/14/18 8:45 am Forms: Inpatient Work/School Release Additional Instructions: General Surgical Discharge Instructions 1. No pushing, pulling, or lifting greater than 15 lbs for 2 week. 2. You may remove your dressings and shower beginning today, but no tub baths, soaking, or swimming for 2 weeks. 3. No driving for two days unless otherwise specified and then you may resume driving when you are off narcotics for 24 hours and are safe to react in a car. 4. Take ibuprofen every 8 hours for discomfort. If this does not relieve discomfort, you may take the as needed Percocet. Eat a small snack with pain medication as this will help reduce the risk of nausea. Take narcotics as directed. Do not take more narcotics then directed and do not share your narcotics with any other person. Do not drink alcohol while on narcotics. You can take the Zofran/ondansetron if needed for nausea or with a dose of narcotics to prevent nausea. 5. Take stool softeners (Colace) or a water based laxative (Miralax) while taking narcotics. You may hold for loose stools. 6. Report any fevers greater than 100.5F, increase abdominal discomfort, drainage that looks like pus, increased redness or pain at the surgical site, or any vomiting. 7. Report any pain in the calves, shortness of breath, or rapid heartbeat. 8. Follow-up in the office as directed. 9. If you were prescribed antibiotics, do not stop them without talking to your provider. - Diet and Activity Activity: increase activity as tolerated Diet: advance to your usual diet
[2018-08-28 08:22] LABS: BUN/Creatinine Ratio 13 (6-26); Blood Urea Nitrogen 10 mg/dL (6-20); Calcium 8.8 mg/dL (8.6-10.3); Carbon Dioxide 26 mEq/L (23-29); Chloride 104 mEq/L (98-107); Glucose 132 mg/dL (70-105); Osmolality,Calculated 287 (280-300); Potassium 3.5 mEq/L (3.5-5.1); Sodium 138 mEq/L (136-145); eGFR For African Americans > 60 (> 60); eGFR For Non-African Americans > 60 (> 60)
[2018-08-28] MEDS ORDERED: BuPROPion XL (24 HR) 150 MG TABLET PO SCH (09:00)
[2018-08-28] MEDS ORDERED: amLODIPine 5 MG TABLET PO SCH (09:00)
[2018-08-28 11:24] VITALS: BP 111/72
--- NOTE | 2018-08-28 13:31 | Electrocardiograph Report ---
[address] [place], [place] [address] Test Date: 2018-08-25 Pat Name: Clara Lake Department: [id number] Room: 3A55 Gender: Cleaning Team Member: : [id number] Requested By: Nain Renee Order Number: [id number] Reading MD: Manas Mann Measurements Intervals [place] Rate: 62 P: 18 IA: 155 QRS: 27 QRSD: 87 T: 14 QT: 440 QTc: 445 Interpretive Statements SINUS RHYTHM Electronically Signed On 08-28-2018 13:30:23 EDT by Manas Mann
== END 2018-08-28 14:03 | disposition home or self-care (01) ==
LOC: 3ANU 23:37 → EMEROOARM 23:37 → 3ANU 08-26 03:15
PROVIDERS: ADMIT Surgery; ATTEND Surgery